=== PATIENT | female | born 1985 | race Two or more races ===

== ENCOUNTER 2022-05-20 12:22 | Inpatient (IN) | payer OTHER ==
[~2022-05-20] VITALS: Ht 180.3 cm; Wt 2.3 kg
[2022-05-20] MEDS ORDERED: COMPLETE NATAL1 EACH PO (13:07)
[2022-05-20] MEDS ORDERED: PEPCID AC20 MG PO (13:08)
[2022-05-23] MEDS ORDERED: KETO10TA2 PO (10:30)
[2022-05-23] MEDS ORDERED: PERCOCET 5-3251 EACH PO (10:31)
== END 2022-05-23 14:20 | disposition home or self-care (01) | DRG 785 ==
LOC: LDR 12:22 → OB/GYN 12:22 → O/R 15:20 → OB/GYN 16:14
PROVIDERS: Obstetrics & Gynecology; ADMIT Obstetrics & Gynecology Gynecology; ATTEND Obstetrics & Gynecology Gynecology
PROC: 0UB70ZZ Excision of Bilateral Fallopian Tubes, Open Approach (ICD-10-PCS; 2022-05-20)
PROC: 4A1HXCZ Monitoring of Products of Conception, Cardiac Rate, External Approach (ICD-10-PCS; 2022-05-20)
PROC: 10D00Z1 Extraction of Products of Conception, Low, Open Approach (ICD-10-PCS; principal; 2022-05-20 15:00)
DX: O41.03X0 Oligohydramnios, third trimester, not applicable or unspecified (principal); O16.4 Unspecified maternal hypertension, complicating childbirth; O34.211 Maternal care for low transverse scar from previous cesarean delivery; Z3A.37 37 weeks gestation of pregnancy; Z37.0 Single live birth; Z30.2 Encounter for sterilization; Z20.822 Contact with and (suspected) exposure to COVID-19